=== PATIENT | female | born 1970 | race Caucasian/White ===

== ENCOUNTER 2017-08-08 08:59 | Observation (INO) | payer MEDICAID ==
[~2017-08-08] VITALS: Ht 157.5 cm; Wt 78.3 kg
[~2017-08-08 08:59] MED LIST: ALBU6.7H INH
[2017-08-08] MEDS ORDERED: metoprolol tartrate 1mg/ml inj IV ONE (09:20)
[2017-08-08] MEDS ORDERED: nitroGLYCERIN 0.4mg SUBLingual tab SL PRN ×2 (09:20→10:10)
[2017-08-08] MEDS ORDERED: aspirin 81mg tab.chew PO ONE (09:20)
[2017-08-08 09:23] LABS: BASOPHILS % (AUTO) 0.3 % (0-1); EOSINOPHILS # (AUTO) 0.2 X10'3 (0-0.9); EOSINOPHILS % (AUTO) 1.9 % (0-6); HEMATOCRIT 45.8 % (35.0-45.0); HEMOGLOBIN 15.8 g/dl (12.0-16.0); LYMPHOCYTES # (AUTO) 2.7 X10'3 (1.1-4.8); LYMPHOCYTES % (AUTO) 32.5 % (21-51); MEAN CORPUSCULAR HEMOGLOBIN 32.2 PG (27.0-31.0); MEAN CORPUSCULAR HGB CONC 34.6 % (33.0-36.5); MEAN CORPUSCULAR VOLUME 93.3 FL (78-98); MEAN PLATELET VOLUME 8.4 FL (7.4-10.4); MONOCYTES # (AUTO) 0.6 X10'3 (0-0.9); MONOCYTES % (AUTO) 6.8 % (2-12); NEUTROPHILS # (AUTO) 4.9 X10'3 (1.8-7.7); NEUTROPHILS % (AUTO) 58.5 % (42-75); PLATELET COUNT 247 X10'3 (140-440); RED BLOOD COUNT 4.91 X10'6 (4.20-5.60); RED CELL DISTRIBUTION WIDTH 13.6 % (11.5-14.5); WHITE BLOOD COUNT 8.4 X10'3 (4.5-11.0)
[2017-08-08 09:32] LABS: PARTIAL THROMBOPLASTIN TIME 25 SECONDS (22-32)
[2017-08-08 09:37] LABS: ALANINE AMINOTRANSFERASE 21 U/L (12-78); ALBUMIN 3.5 G/DL (3.4-5.0); ALKALINE PHOSPHATASE 61 IU/L (46-116); ANION GAP 12 (8-16); ASPARTATE AMINO TRANSFERASE 20 U/L (10-37); BILIRUBIN,TOTAL 0.6 MG/DL (0.1-1.0); BLOOD UREA NITROGEN 9 MG/DL (7-18); BUN/CREATININE RATIO 10.8 (6.6-38.0); CALCIUM 8.4 MG/DL (8.5-10.1); CHLORIDE 103 MMOL/L (99-107); CREATININE 0.83 MG/DL (0.40-0.90); GLUCOSE 103 MG/DL (70-104); SODIUM 139 MMOL/L (135-145); eGFR 74 ML/MIN
[2017-08-08] MEDS ORDERED: CITA20TA19 PO (09:50)
[2017-08-08] MEDS ORDERED: enoxaparin 100mg/ml syringe SUBCUT ONE (09:50)
[2017-08-08] MEDS ORDERED: LABE100T PO (09:51)
[2017-08-08] MEDS ORDERED: mag hydrox/Alum hydrox/simeth 30ml oral suspension PO PRN (10:05)
[2017-08-08] MEDS ORDERED: magnesium hydroxide 30ml (MOM) UD suspension PO PRN (10:05)
[2017-08-08] MEDS ORDERED: morphine 4 MG/ML inj SYRINge IV PRN (10:05)
[2017-08-08] MEDS ORDERED: ondansetron/PF 4mg/2ml inj IV PRN (10:05)
[2017-08-08] MEDS ORDERED: acetaminophen 325mg tablet PO PRN (10:05)
[2017-08-08] MEDS ORDERED: CAFFEINE CITRATE 60 MG/3 ML injection vial IV PRN (10:10)
[2017-08-08] MEDS ORDERED: regadenoson 0.4mg/5ml syringe IV ONE (10:10)
[2017-08-08] MEDS ORDERED: metoprolol tartrate 1mg/ml inj IV PRN (10:10)
[2017-08-08 12:03] LABS: CHOL/HDL RATIO 2.4 (0.00-4.99); CHOLESTEROL 173 MG/DL (0-200); HDL CHOLESTEROL 73 MG/DL (35-60); LDL CHOLESTEROL 86 MG/DL (50-100); TRIGLYCERIDES 72 MG/DL (20-135)
[2017-08-08 12:10] VITALS: BP 131/70
[2017-08-08 15:00] VITALS: BP 128/75
[2017-08-08 18:00] VITALS: BP 118/56
[2017-08-08 22:00] VITALS: BP 129/77
[2017-08-09] VITALS (10 sets, daily range): BP systolic 135–168; BP diastolic 62–103
[2017-08-09 07:22] LABS: CHOL/HDL RATIO 2.9 (0.00-4.99); CHOLESTEROL 157 MG/DL (0-200); HDL CHOLESTEROL 54 MG/DL (35-60); LDL CHOLESTEROL 89 MG/DL (50-100); TRIGLYCERIDES 86 MG/DL (20-135)
[2017-08-09 08:05] LABS: D-DIMER < 0.19 MG/L FEU (0-0.50)
[2017-08-09] MEDS ORDERED: CAFFEINE CITRATE 60 MG/3 ML injection vial IV ONE (08:14)
[2017-08-09] MEDS ORDERED: regadenoson 0.4mg/5ml syringe IV ONE (08:14)
[2017-08-09] MEDS ORDERED: aspirin 325mg tablet PO SCH (08:30)
[2017-08-09] MEDS ORDERED: FURO-150 PO (15:42)
== END 2017-08-09 18:18 | disposition home or self-care (01) ==
LOC: ER 09:00 → ED HOLD 10:02 → EDBEDREQTM 10:56 → PCU 3S 12:06
PROVIDERS: ADMIT Internal Medicine; ATTEND Internal Medicine
DX: R07.89 Other chest pain (principal); I27.20 Pulmonary hypertension, unspecified; R79.89 Other specified abnormal findings of blood chemistry; F17.210 Nicotine dependence, cigarettes, uncomplicated; I20.0 Unstable angina; Z79.899 Other long term (current) drug therapy; F32.9 Major depressive disorder, single episode, unspecified
CPT/HCPCS: 36415; 71045; 78451; 80053; 80061; 83880; 84484; 85025; 85379; 85610; 85730; 87070; 93005; 93017; 93306; 96372; 96374; 99285; A9500; G0378; J1650; J3490

== ENCOUNTER 2017-08-16 11:42 | Inpatient (IN) | payer MEDICAID ==
[~2017-08-16] VITALS: Ht 160 cm; Wt 72.0 kg
[~2017-08-16 11:42] MED LIST changes: -ALBU6.7H INH; +CITA20TA19 PO; +FURO-150 PO; +LABE100T PO
[2017-08-16 12:24] LABS: BASOPHILS % (AUTO) 0.5 % (0-1); EOSINOPHILS # (AUTO) 0.1 X10'3 (0-0.9); EOSINOPHILS % (AUTO) 1.3 % (0-6); HEMATOCRIT 47.3 % (35.0-45.0); HEMOGLOBIN 16.2 g/dl (12.0-16.0); LYMPHOCYTES # (AUTO) 2.8 X10'3 (1.1-4.8); LYMPHOCYTES % (AUTO) 32.9 % (21-51); MEAN CORPUSCULAR HEMOGLOBIN 32.4 PG (27.0-31.0); MEAN CORPUSCULAR HGB CONC 34.3 % (33.0-36.5); MEAN CORPUSCULAR VOLUME 94.4 FL (78-98); MEAN PLATELET VOLUME 8.7 FL (7.4-10.4); MONOCYTES # (AUTO) 0.9 X10'3 (0-0.9); MONOCYTES % (AUTO) 10.3 % (2-12); NEUTROPHILS # (AUTO) 4.7 X10'3 (1.8-7.7); PLATELET COUNT 251 X10'3 (140-440); RED BLOOD COUNT 5.01 X10'6 (4.20-5.60); RED CELL DISTRIBUTION WIDTH 13.6 % (11.5-14.5); WHITE BLOOD COUNT 8.6 X10'3 (4.5-11.0)
[2017-08-16 12:38] LABS: PARTIAL THROMBOPLASTIN TIME 25 SECONDS (22-32); PROTHROMBIN TIME 10.4 SECONDS (9.0-12.0)
[2017-08-16 12:56] LABS: ALANINE AMINOTRANSFERASE 18 U/L (12-78); ALBUMIN 3.7 G/DL (3.4-5.0); ALKALINE PHOSPHATASE 59 IU/L (46-116); ANION GAP 11 (8-16); ASPARTATE AMINO TRANSFERASE 19 U/L (10-37); BILIRUBIN,TOTAL 0.6 MG/DL (0.1-1.0); BLOOD UREA NITROGEN 11 MG/DL (7-18); BUN/CREATININE RATIO 11.7 (6.6-38.0); CALCIUM 9.1 MG/DL (8.5-10.1); CHLORIDE 98 MMOL/L (99-107); CREATININE 0.94 MG/DL (0.40-0.90); GLUCOSE 107 MG/DL (70-104); SODIUM 139 MMOL/L (135-145); TOTAL CARBON DIOXIDE 29.8 MMOL/L (24-32); TOTAL PROTEIN 7.3 G/DL (6.4-8.2); eGFR 64 ML/MIN
[2017-08-16] MEDS ORDERED: potassium Cl 20 mEq SR tablet PO STA (13:07)
[2017-08-16] MEDS ORDERED: normal saline 1000ml 1,000 ML IV ONE (13:10)
[2017-08-16] MEDS ORDERED: potassium Cl 10 mEq/100mL bag IV ONE (13:10)
[2017-08-16 13:54] LABS: MAGNESIUM 1.9 MG/DL (1.5-2.4); PHOSPHORUS 3.3 MG/DL (2.3-4.5)
[2017-08-16] MEDS: magnesium/D5W IVPB 100 ML IV SCH ×2 (14:10→14:38)
[2017-08-16 14:24] LABS: D-DIMER 0.24 MG/L FEU (0-0.50)
[2017-08-16] MEDS ORDERED: magnesium hydroxide 30ml (MOM) UD suspension PO PRN (14:30)
[2017-08-16] MEDS ORDERED: morphine 4 MG/ML inj SYRINge IV PRN (14:30)
[2017-08-16] MEDS ORDERED: ondansetron/PF 4mg/2ml inj IV PRN (14:30)
[2017-08-16] MEDS ORDERED: diphenhydrAMINE 25mg capsule PO PRN (14:30)
[2017-08-16] MEDS ORDERED: HYDROmorphone inj. 0.5 MG/0.5 ML DISP.SYRIN IV PRN ×2 (14:30)
[2017-08-16] MEDS ORDERED: diphenhydrAMINE 50 mg/ml inj IV PRN (14:30)
[2017-08-16] MEDS ORDERED: bisacodyl 10mg suppository rectal RC PRN (14:30)
[2017-08-16] MEDS ORDERED: mag hydrox/Alum hydrox/simeth 30ml oral suspension PO PRN (14:30)
[2017-08-16] MEDS ORDERED: metoclopramide 5 mg/ml inj IV PRN (14:30)
[2017-08-16] MEDS ORDERED: HYDROcodone/acetaminophen 5mg/325mg tablet PO PRN (14:30)
[2017-08-16] MEDS ORDERED: acetaminophen 325mg tablet PO PRN (14:30)
[2017-08-16 14:32] LABS: LIPASE 68 U/L (73-393)
[2017-08-16] MEDS ORDERED: nicotine 21mg patch - 24 hr TD ONE (14:45)
[2017-08-16] MEDS ORDERED: metoprolol tartrate 1mg/ml inj IV PRN (14:50)
[2017-08-16] MEDS: K and/or MAG REPLACEMENT MC SCH (14:50)
[2017-08-16] MEDS ORDERED: CAFFEINE CITRATE 60 MG/3 ML injection vial IV PRN (14:50)
[2017-08-16] MEDS ORDERED: nitroGLYCERIN 0.4mg SUBLingual tab SL PRN (14:50)
[2017-08-16] MEDS ORDERED: regadenoson 0.4mg/5ml syringe IV PRN (14:50)
[2017-08-16] MEDS ORDERED: potassium Cl 20 mEq SR tablet PO PRN (14:50)
[2017-08-16] MEDS ORDERED: potassium Cl 40MEQ/NS 500ml 500 ML IV PRN ×2 (14:50)
[2017-08-16] MEDS: atorvastatin 10mg tablet PO SCH (14:55)
[2017-08-16] MEDS: potassium Cl 20mEq in NS 1,000 ML IV SCH ×2 (14:57→16:06)
[2017-08-16] MEDS ORDERED: magnesium/D5W IVPB 100 ML IV SCH (16:10)
[2017-08-16] MEDS: lisinopril 5mg tablet PO SCH (16:27)
[2017-08-16] MEDS: nitroGLYCERIN 0.4mg SUBLingual tab SL PRN ×2 (16:41→18:05)
[2017-08-16 16:48] LABS: HEMOGLOBIN A1C 5.2 % (4.5-6.2)
[2017-08-16] MEDS: morphine 4 MG/ML inj SYRINge IV PRN (17:05)
[2017-08-16 17:32] VITALS: BP 141/71
[2017-08-16] MEDS ORDERED: FURO-150 PO (17:32)
[2017-08-16] MEDS: enoxaparin 30mg/0.3ml syringe SUBCUT SCH (18:04)
[2017-08-16] MEDS: citalopram 20mg tablet PO SCH (18:04)
[2017-08-16] MEDS: enoxaparin 40mg/0.4ml syringe SQ SCH (18:05)
[2017-08-16] MEDS ORDERED: HYDROmorphone 1 mg/ml syringe IV ONE (18:20)
[2017-08-16 19:00] VITALS: BP 139/67
[2017-08-16 19:23] LABS: MAGNESIUM 2.8 MG/DL (1.5-2.4)
[2017-08-16 19:30] LABS: POTASSIUM 2.9 MMOL/L (3.5-5.1)
[2017-08-16] MEDS: docusate sod 100mg capsule PO SCH (19:39)
[2017-08-16] MEDS: potassium Cl 20 mEq SR tablet PO PRN (19:39)
[2017-08-16] MEDS: metoprolol tartrate 12.5mg (1/2 tablet) PO SCH (19:41)
[2017-08-16] MEDS ORDERED: enoxaparin 30mg/0.3ml syringe SQ SCH (20:00)
[2017-08-16] MEDS ORDERED: temazepam 15mg capsule PO PRN (21:00)
[2017-08-17] VITALS: BP 131/77
[2017-08-17] MEDS: potassium Cl 20 mEq SR tablet PO PRN (00:11)
[2017-08-17] MEDS: potassium Cl 20mEq in NS 1,000 ML IV SCH ×3 (02:15→20:28)
[2017-08-17 02:55] LABS: MAGNESIUM 2.1 MG/DL (1.5-2.4); POTASSIUM 3.8 MMOL/L (3.5-5.1)
[2017-08-17 04:00] VITALS: BP 123/78
[2017-08-17 06:12] LABS: BASOPHILS % (AUTO) 0.5 % (0-1); EOSINOPHILS # (AUTO) 0.2 X10'3 (0-0.9); EOSINOPHILS % (AUTO) 2.6 % (0-6); HEMATOCRIT 36.8 % (35.0-45.0); HEMOGLOBIN 12.5 g/dl (12.0-16.0); LYMPHOCYTES # (AUTO) 2.8 X10'3 (1.1-4.8); MEAN CORPUSCULAR HEMOGLOBIN 32.2 PG (27.0-31.0); MEAN CORPUSCULAR VOLUME 94.6 FL (78-98); MEAN PLATELET VOLUME 8.7 FL (7.4-10.4); MONOCYTES # (AUTO) 0.7 X10'3 (0-0.9); MONOCYTES % (AUTO) 11.6 % (2-12); NEUTROPHILS # (AUTO) 2.6 X10'3 (1.8-7.7); NEUTROPHILS % (AUTO) 41.3 % (42-75); PLATELET COUNT 179 X10'3 (140-440); RED BLOOD COUNT 3.89 X10'6 (4.20-5.60); RED CELL DISTRIBUTION WIDTH 13.6 % (11.5-14.5); WHITE BLOOD COUNT 6.3 X10'3 (4.5-11.0)
[2017-08-17 06:36] LABS: ALANINE AMINOTRANSFERASE 16 U/L (12-78); ALBUMIN 2.6 G/DL (3.4-5.0); ALKALINE PHOSPHATASE 41 IU/L (46-116); ANION GAP 5 (8-16); ASPARTATE AMINO TRANSFERASE 25 U/L (10-37); BILIRUBIN,TOTAL 0.3 MG/DL (0.1-1.0); BLOOD UREA NITROGEN 8 MG/DL (7-18); BUN/CREATININE RATIO 9.2 (6.6-38.0); CHLORIDE 109 MMOL/L (99-107); CHOL/HDL RATIO 3.2 (0.00-4.99); CHOLESTEROL 133 MG/DL (0-200); CREATININE 0.87 MG/DL (0.40-0.90); GLUCOSE 88 MG/DL (70-104); HDL CHOLESTEROL 41 MG/DL (35-60); LDL CHOLESTEROL 71 MG/DL (50-100); POTASSIUM 4.3 MMOL/L (3.5-5.1); SODIUM 142 MMOL/L (135-145); TOTAL CARBON DIOXIDE 27.6 MMOL/L (24-32); TOTAL PROTEIN 5.2 G/DL (6.4-8.2); TRIGLYCERIDES 141 MG/DL (20-135); eGFR 69 ML/MIN
[2017-08-17 07:00] VITALS: BP 123/70
[2017-08-17] MEDS: K and/or MAG REPLACEMENT MC SCH (08:00)
[2017-08-17] MEDS ORDERED: labetalol 100mg tablet PO SCH (08:00)
[2017-08-17] MEDS: citalopram 20mg tablet PO SCH (08:10)
[2017-08-17] MEDS: aspirin 81mg tab.chew PO SCH (08:10)
[2017-08-17] MEDS: metoprolol tartrate 12.5mg (1/2 tablet) PO SCH ×2 (08:10→20:03)
[2017-08-17] MEDS: pantoprazole 40mg Tablet.DR PO SCH (08:10)
[2017-08-17] MEDS: lisinopril 5mg tablet PO SCH (08:10)
[2017-08-17] MEDS: atorvastatin 10mg tablet PO SCH (08:10)
[2017-08-17] MEDS: docusate sod 100mg capsule PO SCH ×2 (08:10→20:00)
[2017-08-17] MEDS: nitroGLYCERIN 0.2mg/hour patch TD SCH (08:12)
[2017-08-17] MEDS: enoxaparin 30mg/0.3ml syringe SUBCUT SCH ×2 (08:13→20:04)
[2017-08-17] MEDS: enoxaparin 40mg/0.4ml syringe SQ SCH ×2 (08:14→20:04)
[2017-08-17] MEDS: furosemide 20MG tablet PO SCH (08:16)
[2017-08-17 11:00] VITALS: BP 105/74
[2017-08-17 20:00] VITALS: BP 100/70
[2017-08-17] MEDS: morphine 4 MG/ML inj SYRINge IV PRN (20:41)
[2017-08-18] VITALS (8 sets, daily range): BP systolic 113–160; BP diastolic 65–90
[2017-08-18] MEDS: morphine 4 MG/ML inj SYRINge IV PRN ×3 (00:44→23:59)
[2017-08-18] MEDS: potassium Cl 20mEq in NS 1,000 ML IV SCH ×2 (00:52→14:50)
[2017-08-18 06:37] LABS: BASOPHILS % (AUTO) 0.3 % (0-1); EOSINOPHILS # (AUTO) 0.1 X10'3 (0-0.9); EOSINOPHILS % (AUTO) 2.1 % (0-6); HEMATOCRIT 34.2 % (35.0-45.0); HEMOGLOBIN 11.3 g/dl (12.0-16.0); LYMPHOCYTES # (AUTO) 3.2 X10'3 (1.1-4.8); LYMPHOCYTES % (AUTO) 46.6 % (21-51); MEAN CORPUSCULAR HGB CONC 33.1 % (33.0-36.5); MEAN CORPUSCULAR VOLUME 96.6 FL (78-98); MEAN PLATELET VOLUME 8.8 FL (7.4-10.4); MONOCYTES # (AUTO) 0.6 X10'3 (0-0.9); MONOCYTES % (AUTO) 8.8 % (2-12); NEUTROPHILS # (AUTO) 2.9 X10'3 (1.8-7.7); NEUTROPHILS % (AUTO) 42.2 % (42-75); PLATELET COUNT 182 X10'3 (140-440); RED BLOOD COUNT 3.54 X10'6 (4.20-5.60); RED CELL DISTRIBUTION WIDTH 14.3 % (11.5-14.5); WHITE BLOOD COUNT 6.9 X10'3 (4.5-11.0)
[2017-08-18 07:05] LABS: ALANINE AMINOTRANSFERASE 16 U/L (12-78); ALBUMIN 2.4 G/DL (3.4-5.0); ALBUMIN/GLOBULIN RATIO 0.9 (1.1-1.5); ALKALINE PHOSPHATASE 37 IU/L (46-116); ANION GAP 8 (8-16); ASPARTATE AMINO TRANSFERASE 22 U/L (10-37); BILIRUBIN,TOTAL 0.2 MG/DL (0.1-1.0); BLOOD UREA NITROGEN 7 MG/DL (7-18); BUN/CREATININE RATIO 8.4 (6.6-38.0); CALCIUM 7.9 MG/DL (8.5-10.1); CHLORIDE 108 MMOL/L (99-107); CREATININE 0.83 MG/DL (0.40-0.90); GLUCOSE 83 MG/DL (70-104); SODIUM 142 MMOL/L (135-145); TOTAL CARBON DIOXIDE 26.5 MMOL/L (24-32); eGFR 73 ML/MIN
[2017-08-18] MEDS: enoxaparin 40mg/0.4ml syringe SQ SCH ×2 (08:00→19:55)
[2017-08-18] MEDS: docusate sod 100mg capsule PO SCH (08:00)
[2017-08-18] MEDS: nitroGLYCERIN 0.2mg/hour patch TD SCH (08:00)
[2017-08-18] MEDS: aspirin 81mg tab.chew PO SCH (08:00)
[2017-08-18] MEDS: metoprolol tartrate 12.5mg (1/2 tablet) PO SCH ×3 (08:00→20:00)
[2017-08-18] MEDS: enoxaparin 30mg/0.3ml syringe SUBCUT SCH ×2 (08:00→19:54)
[2017-08-18] MEDS: K and/or MAG REPLACEMENT MC SCH (08:00)
[2017-08-18] MEDS ORDERED: fentaNYL/PF 50MCG/1 ML 2ML syringe ONE (08:03)
[2017-08-18] MEDS ORDERED: midazolam 2 mg/2 ml injection ONE (08:03)
[2017-08-18] MEDS ORDERED: iohexol 350 MG/1 ML 200ml bottle ONE (08:03)
[2017-08-18] MEDS ORDERED: LIDOcaine 1% w/EPI 1:100,000 30ml vial (MDV) ONE (08:03)
[2017-08-18] MEDS ORDERED: heparin 1,000unit/ml 10ml vial 10 ML ONE (08:37)
[2017-08-18] MEDS ORDERED: nitroGLYCERIN-Tridil 50MG/D5W 250 ML IV ONE (08:44)
[2017-08-18] MEDS ORDERED: ticagrelor 90mg tablet ONE (08:57)
[2017-08-18] MEDS: pantoprazole 40mg Tablet.DR PO SCH (09:44)
[2017-08-18] MEDS: citalopram 20mg tablet PO SCH (09:45)
[2017-08-18] MEDS: atorvastatin 10mg tablet PO SCH (09:45)
[2017-08-18] MEDS: furosemide 20MG tablet PO SCH (09:45)
[2017-08-18] MEDS: lisinopril 5mg tablet PO SCH (09:46)
[2017-08-18] MEDS ORDERED: aspirin 81mg tab.chew PO ONE (13:00)
[2017-08-18] MEDS ORDERED: OXAZEpam 15mg capsule PO PRN (13:00)
[2017-08-18] MEDS ORDERED: proCHLORperazine 10 MG/2 ml inj IV PRN (13:05)
[2017-08-18] MEDS: lisinopril 20mg tablet PO SCH (18:35)
[2017-08-18] MEDS: ticagrelor 90mg tablet PO SCH (19:55)
[2017-08-18] MEDS: HYDROcodone/acetaminophen 10/325mg tab PO PRN (19:56)
[2017-08-18] MEDS: cloNIDine 0.1 mg tablet PO SCH (20:00)
[2017-08-18] MEDS ORDERED: atorvastatin 20mg tablet PO SCH (21:00)
[2017-08-19] VITALS: BP 100/61
[2017-08-19] MEDS: morphine 4 MG/ML inj SYRINge IV PRN (04:34)
[2017-08-19 05:51] LABS: BASOPHILS % (AUTO) 0.4 % (0-1); EOSINOPHILS # (AUTO) 0.2 X10'3 (0-0.9); EOSINOPHILS % (AUTO) 3.2 % (0-6); HEMATOCRIT 34.6 % (35.0-45.0); HEMOGLOBIN 11.7 g/dl (12.0-16.0); LYMPHOCYTES # (AUTO) 2.4 X10'3 (1.1-4.8); LYMPHOCYTES % (AUTO) 33.8 % (21-51); MEAN CORPUSCULAR HEMOGLOBIN 31.9 PG (27.0-31.0); MEAN CORPUSCULAR HGB CONC 33.7 % (33.0-36.5); MEAN CORPUSCULAR VOLUME 94.7 FL (78-98); MEAN PLATELET VOLUME 8.9 FL (7.4-10.4); MONOCYTES # (AUTO) 0.5 X10'3 (0-0.9); MONOCYTES % (AUTO) 7.1 % (2-12); NEUTROPHILS % (AUTO) 55.5 % (42-75); PLATELET COUNT 172 X10'3 (140-440); RED BLOOD COUNT 3.65 X10'6 (4.20-5.60); WHITE BLOOD COUNT 7.2 X10'3 (4.5-11.0)
[2017-08-19 06:08] LABS: ALANINE AMINOTRANSFERASE 14 U/L (12-78); ALBUMIN 2.4 G/DL (3.4-5.0); ALBUMIN/GLOBULIN RATIO 0.9 (1.1-1.5); ALKALINE PHOSPHATASE 41 IU/L (46-116); ANION GAP 7 (8-16); ASPARTATE AMINO TRANSFERASE 20 U/L (10-37); BILIRUBIN,TOTAL 0.2 MG/DL (0.1-1.0); BLOOD UREA NITROGEN 8 MG/DL (7-18); BUN/CREATININE RATIO 10.4 (6.6-38.0); CALCIUM 7.5 MG/DL (8.5-10.1); CHLORIDE 106 MMOL/L (99-107); CREATININE 0.77 MG/DL (0.40-0.90); GLUCOSE 86 MG/DL (70-104); POTASSIUM 3.6 MMOL/L (3.5-5.1); SODIUM 141 MMOL/L (135-145); TOTAL CARBON DIOXIDE 27.9 MMOL/L (24-32); TOTAL PROTEIN 5.1 G/DL (6.4-8.2); eGFR 80 ML/MIN
[2017-08-19 07:09] VITALS: BP 128/79
[2017-08-19] MEDS: K and/or MAG REPLACEMENT MC SCH (08:00)
[2017-08-19] MEDS ORDERED: metoprolol succinate 25mg (24-HOUR) SR. Tablet PO SCH (08:00)
[2017-08-19] MEDS: pantoprazole 40mg Tablet.DR PO SCH (08:02)
[2017-08-19] MEDS: ticagrelor 90mg tablet PO SCH (08:02)
[2017-08-19] MEDS: aspirin 81mg tab.chew PO SCH (08:02)
[2017-08-19] MEDS: citalopram 20mg tablet PO SCH (08:03)
[2017-08-19] MEDS: enoxaparin 30mg/0.3ml syringe SUBCUT SCH (08:04)
[2017-08-19] MEDS: enoxaparin 40mg/0.4ml syringe SQ SCH (08:04)
[2017-08-19] MEDS: cloNIDine 0.1 mg tablet PO SCH (08:05)
[2017-08-19] MEDS: lisinopril 20mg tablet PO SCH (08:06)
[2017-08-19] MEDS: HYDROcodone/acetaminophen 10/325mg tab PO PRN (08:13)
[2017-08-19] MEDS ORDERED: ATOR20TA66 PO (10:25)
[2017-08-19] MEDS ORDERED: CLON0.1T20 PO (10:25)
[2017-08-19] MEDS ORDERED: LISI-600 PO (10:25)
[2017-08-19] MEDS ORDERED: TICA90TA PO (10:25)
[2017-08-19] MEDS ORDERED: ASPI-1265 PO (10:25)
[2017-08-19 11:30] VITALS: BP 104/50
== END 2017-08-19 13:20 | disposition home or self-care (01) | DRG 174 ==
LOC: ER 11:42 → ED HOLD 14:28 → SUR 3N 16:05
PROVIDERS: ADMIT Family Medicine; ATTEND Family Medicine
PROC: 027034Z Dilation of Coronary Artery, One Artery with Drug-eluting Intraluminal Device, Percutaneous Approach (ICD-10-PCS; principal; 2017-08-18)
PROC: 4A023N7 Measurement of Cardiac Sampling and Pressure, Left Heart, Percutaneous Approach (ICD-10-PCS; 2017-08-18)
PROC: B2111ZZ Fluoroscopy of Multiple Coronary Arteries using Low Osmolar Contrast (ICD-10-PCS; 2017-08-18)
PROC: B2151ZZ Fluoroscopy of Left Heart using Low Osmolar Contrast (ICD-10-PCS; 2017-08-18)
DX: I21.4 Non-ST elevation (NSTEMI) myocardial infarction (principal); I50.23 Acute on chronic systolic (congestive) heart failure; I27.20 Pulmonary hypertension, unspecified; M41.84 Other forms of scoliosis, thoracic region; I11.0 Hypertensive heart disease with heart failure; E87.6 Hypokalemia; I49.3 Ventricular premature depolarization; F32.9 Major depressive disorder, single episode, unspecified; F41.9 Anxiety disorder, unspecified; F17.200 Nicotine dependence, unspecified, uncomplicated; Z79.899 Other long term (current) drug therapy; Z88.0 Allergy status to penicillin; Z88.6 Allergy status to analgesic agent; Z82.3 Family history of stroke; Z71.6 Tobacco abuse counseling
CPT/HCPCS: 36415; 71045; 80053; 80061; 83036; 83690; 83735; 83880; 84100; 84132; 84443; 84484; 85025; 85379; 85610; 85730; 87070; 93005; 93458; 96360; 99152; 99153; 99285; A6212; A6213; A6257; C1725; C1760; C1769; C1874; C9600; J1644; J1650; J2250; J2270; J3010; J3480; J3490; J7030; Q9967

== ENCOUNTER 2018-12-05 12:04 | Emergency (ER) | payer MEDICAID ==
[~2018-12-05] VITALS: Ht 157.5 cm; Wt 74.0 kg
[~2018-12-05 12:04] MED LIST changes: +ASPI-1265 PO; +ATOR20TA66 PO; +CLON0.1T20 PO; -FURO-150 PO; -LABE100T PO; +LABE100T5 PO; +LISI-600 PO; +TICA90TA PO
[2018-12-05] MEDS ORDERED: HYDROcodone/acetaminophen 5mg/325mg tablet PO ONE (12:20)
--- NOTE | 2018-12-05 13:18 | NUR ---
assumed care of pt from Jamarcus MARQUEZ, first contact, Dr Gutierrez called pt off of trauma status, pt is resting quietly on gurney, resp even and unlabored,
[2018-12-05 13:19] VITALS: BP 133/75
[2018-12-05] MEDS ORDERED: HYDR-3965 PO (13:33)
== END 2018-12-05 13:43 | disposition home or self-care (01) ==
LOC: ER 12:04
DX: S06.0X0A Concussion without loss of consciousness, initial encounter (principal); S60.222A Contusion of left hand, initial encounter; M54.2 Cervicalgia; I10 Essential (primary) hypertension; I27.20 Pulmonary hypertension, unspecified; Z88.0 Allergy status to penicillin; Z88.5 Allergy status to narcotic agent; Z79.82 Long term (current) use of aspirin; Z79.899 Other long term (current) drug therapy; W01.0XXA Fall on same level from slipping, tripping and stumbling without subsequent striking against object, initial encounter; Y93.01 Activity, walking, marching and hiking; Y92.89 Other specified places as the place of occurrence of the external cause; Y99.8 Other external cause status
CPT/HCPCS: 70450; 73130; 99284

== ENCOUNTER 2019-03-20 06:28 | Day surgery (SDC) | payer MEDICAID ==
[2019-03-11 15:11] LABS: BASOPHILS # (AUTO) 0.1 X10'3 (0-0.2); BASOPHILS % (AUTO) 0.6 % (0-1); EOSINOPHILS # (AUTO) 0.2 X10'3 (0-0.9); EOSINOPHILS % (AUTO) 2.2 % (0-6); MEAN CORPUSCULAR HGB CONC 34.1 g/dL (33.0-36.5); MEAN CORPUSCULAR VOLUME 93.8 FL (78-98); MEAN PLATELET VOLUME 8.5 FL (7.4-10.4); MONOCYTES % (AUTO) 9.7 % (2-12); NEUTROPHILS % (AUTO) 58.5 % (42-75); PRE OP HEMATOCRIT 43.8 % (35.0-45.0); PRE OP HEMOGLOBIN 14.9 g/dL (12.0-16.0); PRE OP PLATELET COUNT 297 X10'3 (140-440); RED BLOOD COUNT 4.66 X10'6 (4.20-5.60); RED CELL DISTRIBUTION WIDTH 13.6 % (11.5-14.5)
[2019-03-11 15:27] LABS: ALBUMIN 3.5 G/DL (3.4-5.0); ALBUMIN/GLOBULIN RATIO 1.1 (1.1-1.5); ALKALINE PHOSPHATASE 65 IU/L (46-116); BLOOD UREA NITROGEN 10 MG/DL (7-18); CALCIUM 8.7 MG/DL (8.5-10.1); CHLORIDE 105 MMOL/L (99-107); CREATININE 0.83 MG/DL (0.40-0.90); PRE OP ALT 25 U/L (30-65); PRE OP ANION GAP 5 (8-16); PRE OP AST 19 U/L (10-37); PRE OP BILIRUB, TOTAL 0.4 MG/DL (0.0-1.0); PRE OP GLUCOSE 87 MG/DL (70-104); PRE OP POTASSIUM 3.6 MMOL/L (3.4-5.1); PRE OP SODIUM 143 MMOL/L (135-145); TOTAL CARBON DIOXIDE 33.5 MMOL/L (24-32); TOTAL PROTEIN 6.7 G/DL (6.4-8.2); eGFR 73 ML/MIN
[~2019-03-20] VITALS: Ht 157.5 cm; Wt 76.7 kg
[~2019-03-20 06:28] MED LIST changes: -ATOR20TA66 PO; +ATOR40TA PO; +CLINDAMYCIN/D5W 900mg/50ml 50 ML IV ONE; +CLON0.1T PO; -CLON0.1T20 PO; -LABE100T5 PO; -LISI-600 PO; +LOSA1TAB39 PO; -TICA90TA PO; +famotidine 10mg tablet PO ONE; +famotidine 20mg tablet PO ONE; +ringers solution, lacted 1,000 ML IV SCH
[2019-03-20 06:35] VITALS: BP 164/91
[2019-03-20] MEDS ORDERED: famotidine 10mg tablet PO ONE (07:35)
[2019-03-20] MEDS ORDERED: LIDOcaine 0.5% (5mg/ml) 50ml vial ONE (08:52)
[2019-03-20] MEDS ORDERED: BUPIVAcaine/PF 2.5mg/ml (0.25%) 10ml vial ONE ×2 (09:29→10:59)
[2019-03-20] MEDS ORDERED: meperidine/PF 25mg/ml syringe IV ONE (10:10)
[2019-03-20] MEDS ORDERED: sevoflurane 250ml liquid IH ONE (10:10)
[2019-03-20] MEDS ORDERED: fentaNYL/PF 50MCG/1 ML 2ML syringe ONE ×2 (10:18→10:35)
[2019-03-20] MEDS ORDERED: midazolam 2 mg/2 ml injection ONE (10:19)
[2019-03-20] MEDS ORDERED: propofol inj 20 ML IV ONE (10:53)
[2019-03-20] MEDS ORDERED: ondansetron/PF 4mg/2ml inj ONE (10:53)
[2019-03-20] MEDS ORDERED: LIDOcaine 1%/PF 5ML 10 MG/ML VIAL ONE (10:53)
[2019-03-20] MEDS ORDERED: dexamethasone sod phosphate 4mg/ml inj. ONE (10:53)
[2019-03-20 11:10] VITALS: BP 122/88
--- NOTE | 2019-03-20 11:10 | NUR ---
Received from OR via BED, accompanied by Anesthesiologist DR MANZANO and report given by Anesthesiolgist. PATIENT A&OX4, DENIES PAIN, V/S WNL, NEUROVASCULAR CHECKS INTACT, 20G PIV RUE, SCD ON, DRESSING TO LEFT WRIST CDI ELEVATED WITH ICEBAG APPLIED.
[2019-03-20] MEDS ORDERED: ringers solution, lacted 1,000 ML IV SCH (11:16)
[2019-03-20 11:20] VITALS: BP 127/77
[2019-03-20] MEDS ORDERED: meperidine/PF 25mg/ml syringe IV PRN ×3 (11:20)
[2019-03-20] MEDS ORDERED: morphine 4 MG/ML inj SYRINge IV PRN ×2 (11:20)
[2019-03-20] MEDS ORDERED: ondansetron/PF 4mg/2ml inj IV PRN (11:20)
[2019-03-20] MEDS ORDERED: proCHLORperazine 10 MG/2 ml inj IV PRN (11:20)
[2019-03-20] MEDS ORDERED: labetalol 20mg/4ml (5mg/ml) syringe IV ONE (11:22)
[2019-03-20 11:30] VITALS: BP 131/74
[2019-03-20 11:40] VITALS: BP 132/74
[2019-03-20 11:50] VITALS: BP 123/71
--- NOTE | 2019-03-20 11:50 | NUR ---
PATIENT A&OX4, DENIES PAIN, V/S WNL, NEUROVASCULAR CHECKS INTACT, 20G PIV RUE D/C, SCD OFF, DRESSING TO LEFT WRIST CDI ELEVATED WITH ICEBAG APPLIED. I HAVE REVIEWED D/C INSTRUCTIONS WITH PATIENT AND FAMILY AND THEY HAVE VERBALIZED UNDERSTANDING. PATIENT D/C HOME WITH ALL BELONGINGS AND FAMILY GAVE TRANSPORT HOME.
== END 2019-03-20 11:50 | disposition home or self-care (01) ==
LOC: PAS 06:28
PROVIDERS: ATTEND Orthopaedic Surgery Hand Surgery
DX: M18.12 Unilateral primary osteoarthritis of first carpometacarpal joint, left hand (principal); F32.9 Major depressive disorder, single episode, unspecified; M19.90 Unspecified osteoarthritis, unspecified site; Z88.5 Allergy status to narcotic agent; Z88.0 Allergy status to penicillin; Z79.899 Other long term (current) drug therapy; Z95.5 Presence of coronary angioplasty implant and graft; Z79.82 Long term (current) use of aspirin; Z72.89 Other problems related to lifestyle; Z87.891 Personal history of nicotine dependence
CPT/HCPCS: 25310; 25447; 36415; 80053; 82948; 85025; J1100; J2001; J2175; J2250; J2405; J2704; J3010; J3490; A4215; A4618; J7120

== ENCOUNTER 2023-12-25 12:15 | Inpatient (IN) | payer MEDICAID ==
[~2023-12-25] VITALS: Ht 160 cm; Wt 76.2 kg
[~2023-12-25 12:15] MED LIST changes: -CLINDAMYCIN/D5W 900mg/50ml 50 ML IV ONE; -famotidine 10mg tablet PO ONE; -famotidine 20mg tablet PO ONE; -ringers solution, lacted 1,000 ML IV SCH
[2023-12-25 12:49] LABS: BASOPHILS # (AUTO) 0.1 X10'3 (0-0.2); BASOPHILS % (AUTO) 0.6 % (0-1); EOSINOPHILS # (AUTO) 0.3 X10'3 (0-0.9); EOSINOPHILS % (AUTO) 2.4 % (0-6); HEMATOCRIT 44.7 % (35.0-45.0); HEMOGLOBIN 14.8 g/dl (12.0-16.0); LYMPHOCYTES # (AUTO) 3.6 X10'3 (1.1-4.8); LYMPHOCYTES % (AUTO) 32.4 % (21-51); MEAN CORPUSCULAR HGB CONC 33.2 g/dL (33.0-36.5); MEAN CORPUSCULAR VOLUME 96.3 FL (78-98); MEAN PLATELET VOLUME 8.7 FL (7.4-10.4); MONOCYTES # (AUTO) 0.8 X10'3 (0-0.9); MONOCYTES % (AUTO) 7.3 % (2-12); NEUTROPHILS # (AUTO) 6.3 X10'3 (1.8-7.7); NEUTROPHILS % (AUTO) 57.3 % (42-75); PLATELET COUNT 309 X10'3 (140-440); RED BLOOD COUNT 4.64 X10'6 (4.20-5.60); RED CELL DISTRIBUTION WIDTH 13.6 % (11.5-14.5)
[2023-12-25 13:09] LABS: ALANINE AMINOTRANSFERASE 25 U/L (12-78); ALBUMIN 3.5 G/DL (3.4-5.0); ALBUMIN/GLOBULIN RATIO 1.1 (1.1-1.5); ALKALINE PHOSPHATASE 65 IU/L (46-116); ANION GAP 5 (8-16); ASPARTATE AMINO TRANSFERASE 22 U/L (10-37); BILIRUBIN,TOTAL 0.4 MG/DL (0.1-1.0); BLOOD UREA NITROGEN 11 MG/DL (7-18); BUN/CREATININE RATIO 14.9 (10.0-20.0); CHLORIDE 103 MMOL/L (99-107); CREATININE 0.74 MG/DL (0.40-0.90); GLUCOSE 99 MG/DL (70-104); POTASSIUM 3.6 MMOL/L (3.5-5.1); SODIUM 139 MMOL/L (135-145); TOTAL PROTEIN 6.7 G/DL (6.4-8.2); eCRCL 72 ML/MIN; eGFR 82 ML/MIN
[2023-12-25 13:16] LABS: PRO BRAIN NATRIURETIC PEPTIDE 178 PG/ML (0-125)
[2023-12-25 14:55] LABS: MAGNESIUM 2.1 MG/DL (1.5-2.4)
[2023-12-25] MEDS: morphine 4 MG/ML inj SYRINge IV ONE (15:19)
[2023-12-25] MEDS: aspirin 81mg tab.chew PO ONE (16:00)
[2023-12-25] MEDS ORDERED: magnesium hydroxide 30ml (MOM) UD suspension PO PRN (18:35)
[2023-12-25] MEDS ORDERED: mag hydrox/Alum hydrox/simeth 30ml oral suspension PO PRN (18:35)
[2023-12-25] MEDS ORDERED: ondansetron/PF 4mg/2ml inj IV PRN (18:35)
[2023-12-25] MEDS ORDERED: aminophylline 250mg/10ml inj. IV PRN (18:35)
[2023-12-25] MEDS ORDERED: nitroGLYCERIN 0.4mg SUBLingual tab SL PRN (18:35)
[2023-12-25] MEDS ORDERED: potassium Cl 40MEQ/1/2NS 520ml 520 ML IV PRN (18:35)
[2023-12-25] MEDS ORDERED: acetaminophen 325mg tablet PO PRN (18:35)
[2023-12-25] MEDS ORDERED: potassium Cl 20 mEq SR tablet PO PRN ×2 (18:35)
[2023-12-25] MEDS ORDERED: magnesium sulf-water 2g/50mL 50 ML IV PRN (18:35)
[2023-12-25] MEDS ORDERED: magnesium sulf-water 4G/100mL 100 ML IV PRN (18:35)
[2023-12-25] MEDS ORDERED: metoprolol tartrate 1mg/ml inj IV PRN (18:35)
[2023-12-25] MEDS: nitroGLYCERIN 0.4mg SUBLingual tab SL PRN (19:13)
[2023-12-25] MEDS: PERFLUTREN PROTEIN-A MICROSPHR (Optison) 0.22 MG/ML 3ML VIAL IV ONE (19:20)
[2023-12-25] MEDS: K and/or MAG REPLACEMENT MC SCH (19:30)
[2023-12-25] MEDS: docusate sod 100mg capsule PO SCH (19:30)
[2023-12-25] MEDS: atorvastatin 20mg tablet PO SCH (19:31)
[2023-12-25] MEDS: metoprolol succinate 25mg (24-HOUR) SR. Tablet PO SCH (21:36)
[2023-12-25] MEDS: diphenhydrAMINE 25mg capsule PO ONE (21:36)
[2023-12-25] MEDS: heparin, porcine 5000 units/ml vial SQ SCH (21:37)
[2023-12-25 23:30] VITALS: BP 149/71; PULSE 65; RESP 21; TEMP 98.3; O2SAT 99
[2023-12-25 23:54] VITALS: RESP 21; O2SAT 99
[2023-12-26] VITALS (17 sets, daily range): BP systolic 108–179; BP diastolic 68–108; PULSE 55–92; RESP 15–18; TEMP 97.7–98.2; O2SAT 96–98
[2023-12-26] MEDS ORDERED: PRED5DRO23 (00:40)
[2023-12-26] MEDS ORDERED: TRAZ150T78 PO (00:40)
[2023-12-26 08:12] LABS: BASOPHILS % (AUTO) 0.2 % (0-1); EOSINOPHILS # (AUTO) 0.1 X10'3 (0-0.9); EOSINOPHILS % (AUTO) 1.8 % (0-6); HEMATOCRIT 39.3 % (35.0-45.0); HEMOGLOBIN 12.9 g/dl (12.0-16.0); LYMPHOCYTES # (AUTO) 2.1 X10'3 (1.1-4.8); LYMPHOCYTES % (AUTO) 26.5 % (21-51); MEAN CORPUSCULAR HEMOGLOBIN 31.5 PG (27.0-31.0); MEAN CORPUSCULAR HGB CONC 32.9 g/dL (33.0-36.5); MEAN CORPUSCULAR VOLUME 95.7 FL (78-98); MEAN PLATELET VOLUME 8.3 FL (7.4-10.4); MONOCYTES # (AUTO) 0.5 X10'3 (0-0.9); MONOCYTES % (AUTO) 6.3 % (2-12); NEUTROPHILS # (AUTO) 5.1 X10'3 (1.8-7.7); NEUTROPHILS % (AUTO) 65.2 % (42-75); PLATELET COUNT 256 X10'3 (140-440); RED BLOOD COUNT 4.11 X10'6 (4.20-5.60); RED CELL DISTRIBUTION WIDTH 13.1 % (11.5-14.5); WHITE BLOOD COUNT 7.8 X10'3 (4.5-11.0)
[2023-12-26] MEDS: pantoprazole 40 MG vial IV SCH (08:26)
[2023-12-26] MEDS: aspirin 81mg, enteric-coated 1 TAB TABLET.DR PO SCH (08:30)
[2023-12-26 08:40] LABS: ALANINE AMINOTRANSFERASE 19 U/L (12-78); ALBUMIN/GLOBULIN RATIO 1.1 (1.1-1.5); ALKALINE PHOSPHATASE 53 IU/L (46-116); ANION GAP 5 (8-16); ASPARTATE AMINO TRANSFERASE 21 U/L (10-37); BILIRUBIN,TOTAL 0.6 MG/DL (0.1-1.0); BLOOD UREA NITROGEN 7 MG/DL (7-18); BUN/CREATININE RATIO 10.8 (10.0-20.0); CALCIUM 8.3 MG/DL (8.5-10.1); CHLORIDE 102 MMOL/L (99-107); CHOL/HDL RATIO 2.2 (0.00-4.99); CHOLESTEROL 133 MG/DL (0-200); CREATININE 0.65 MG/DL (0.40-0.90); GLUCOSE 95 MG/DL (70-104); HDL CHOLESTEROL 60 MG/DL (35-60); LDL CHOLESTEROL 56 MG/DL (50-100); MAGNESIUM 1.9 MG/DL (1.5-2.4); POTASSIUM 3.5 MMOL/L (3.5-5.1); SODIUM 136 MMOL/L (135-145); TOTAL CARBON DIOXIDE 28.9 MMOL/L (24-32); TOTAL PROTEIN 5.8 G/DL (6.4-8.2); TRIGLYCERIDES 139 MG/DL (20-135); eCRCL 82 ML/MIN; eGFR > 90 ML/MIN
[2023-12-26] MEDS: acetaminophen 325mg tablet PO PRN (13:11)
[2023-12-26] MEDS: regadenoson 0.4mg/5ml syringe IV PRN (15:15)
[2023-12-26] MEDS: losartan 50mg tablet PO SCH (22:13)
[2023-12-27 02:00] VITALS: BP 147/82; PULSE 60; RESP 17; TEMP 98.4; O2SAT 95
[2023-12-27 06:00] VITALS: BP 154/68; PULSE 60; RESP 16; TEMP 97.6; O2SAT 98
[2023-12-27 08:00] VITALS: RESP 16; O2SAT 98
[2023-12-27 08:02] VITALS: BP_SYST 154; PULSE 81
[2023-12-27 08:54] LABS: MAGNESIUM 2.1 MG/DL (1.5-2.4); POTASSIUM 3.7 MMOL/L (3.5-5.1)
[2023-12-27] MEDS ORDERED: METO-395 PO (16:36)
== END 2023-12-27 12:12 | disposition home or self-care (01) | DRG 198 ==
LOC: ER 12:15 → ED HOLD 18:40 → OBSVTOIN 18:40 → PCU 3S 23:15
PROVIDERS: ADMIT Nurse Practitioner Family; ATTEND Nurse Practitioner Family
PROC: 4A02XM4 Measurement of Cardiac Total Activity, External Approach (ICD-10-PCS; principal; 2023-12-26)
PROC: 3E033HZ Introduction of Radioactive Substance into Peripheral Vein, Percutaneous Approach (ICD-10-PCS; 2023-12-26)
DX: R07.89 Other chest pain (principal); I25.10 Atherosclerotic heart disease of native coronary artery without angina pectoris; I27.20 Pulmonary hypertension, unspecified; I10 Essential (primary) hypertension; Z88.0 Allergy status to penicillin; Z88.5 Allergy status to narcotic agent; Z95.5 Presence of coronary angioplasty implant and graft; Z87.891 Personal history of nicotine dependence; Z79.82 Long term (current) use of aspirin; Z79.899 Other long term (current) drug therapy; I25.2 Old myocardial infarction
CPT/HCPCS: 36415; 71045; 78452; 80053; 80061; 83036; 83735; 83880; 84132; 84484; 85025; 87081; 93005; 93017; 93306; 96374; 99285; A9500; G0378; J1644; J2270; J2470; J2785; Q0163